=== PATIENT | female | born 1980 | race African-American/Black ===

== ENCOUNTER 2018-07-26 06:01 | Emergency (ER) | payer BC, MEDICAID ==
[~2018-07-26] VITALS: Ht 162.6 cm; Wt 131.5 kg
[2018-07-26 07:05] LABS: Basophils # (auto) 0 uL; Eosinophils # (auto) 0 uL; Mean Corpuscular Hemoglobin 25.6 pg (28.0-32.0); Mean Corpuscular Hgb Conc. 32.5 g/dL (32.0-36.0); Monocytes # (auto) 0.3 uL; Nucleated Red Blood Cells % 0.1 %
[2018-07-26 07:07] LABS: Hematocrit 39.9 % (36.0-46.0); Lymphocytes # (auto) 1.4 uL; Lymphocytes % (auto) 32.7 % (10.0-50.0); Mean Corpuscular Volume 78.8 fL (80.0-100.0); Monocytes % (auto) 7.1 % (0.0-12.0); Neutrophils # (auto) 2.4 uL; Neutrophils % (auto) 58.2 % (37.0-80.0); Platelet Count (auto) 348 10^3/uL (140-450); Red Blood Cells 5.07 10^6/uL (4.0-5.20); Red Cell Distribution Width 18.9 % (11.8-14.3); White Blood Cell 4.2 10^3/uL (4.4-10.8)
[2018-07-26 07:23] LABS: Albumin 3.1 g/dL (3.4-5.0); BUN/Creatinine Ratio 16.7; Calcium 8.5 mg/dL (8.5-10.1); Potassium 3.7 mmol/L (3.5-5.1)
[2018-07-26 07:26] LABS: Bilirubin, Total 0.4 mg/dL (0.2-1.0)
[2018-07-26 10:23] VITALS: BP 121/77
[2018-07-26 10:50] LABS: Urine Bacteria NONE SEEN /hpf (None Seen); Urine Blood Negative /uL (Negative); Urine Specific Gravity 1.009 (1.001-1.035); Urine WBC <1 /hpf (0 - 5)
== END 2018-07-26 11:24 | disposition home or self-care (01) ==
LOC: ER 06:01
DX: O36.4XX0 Maternal care for intrauterine death, not applicable or unspecified (principal); Z3A.01 Less than 8 weeks gestation of pregnancy; Z90.49 Acquired absence of other specified parts of digestive tract; Z88.6 Allergy status to analgesic agent
CPT/HCPCS: 36415; 76801; 80053; 81001; 84702; 85025

== ENCOUNTER 2019-12-14 14:19 | Emergency (ER) | payer BC, MEDICAID ==
[~2019-12-14] VITALS: Ht 162.6 cm; Wt 142.9 kg
[2019-12-14 14:49] VITALS: BP 136/86
[2019-12-14 15:13] LABS: Urine WBC None Seen /hpf (0 - 5)
[2019-12-14 15:31] LABS: Urine Bacteria NONE SEEN /hpf (None Seen); Urine Blood Negative /uL (Negative); Urine Mucus FEW (None Seen); Urine Specific Gravity 1.026 (1.001-1.035)
== END 2019-12-14 16:23 | disposition home or self-care (01) ==
LOC: ER 14:19
DX: B34.9 Viral infection, unspecified (principal); R10.9 Unspecified abdominal pain; Z88.6 Allergy status to analgesic agent; Z90.49 Acquired absence of other specified parts of digestive tract
CPT/HCPCS: 36415; 71045; 81001; 81025; 87426

== ENCOUNTER 2021-05-10 16:42 | Inpatient (IN) | payer BC, MEDICAID ==
[~2021-05-10] VITALS: Ht 162.6 cm; Wt 164.3 kg
[2021-05-10] MEDS ORDERED: LIDOCAINE VISCOUS 2% 15ML UD PO ONE (17:15)
[2021-05-10] MEDS ORDERED: ONDANSETRON HCL 4 MG/2 ML VIAL IV ONE (17:15)
[2021-05-10] MEDS ORDERED: ALUM & MAG HYDROX-SIMETH LIQ(MAALOX) 30 ML PO ONE (17:15)
[2021-05-10] MEDS ORDERED: FAMOTIDINE (10MG/ML) 2ML VL IV ONE (17:15)
[2021-05-10] MEDS ORDERED: METOCLOPRAMIDE HCL 5MG/ml INJ 2ml VIAL IV ONE (17:30)
[2021-05-10 17:40] LABS: Urine Bacteria FEW /hpf (None Seen); Urine Blood 3+ /uL (Negative); Urine Mucus FEW (None Seen); Urine Specific Gravity 1.033 (1.001-1.035); Urine WBC 16 /hpf (0 - 5)
[2021-05-10 18:46] LABS: Albumin 3.5 g/dL (3.4-5.0); BUN/Creatinine Ratio 9.8; Calcium 8.4 mg/dL (8.5-10.1); Potassium 3.2 mmol/L (3.5-5.1)
[2021-05-10 18:49] LABS: Bilirubin, Total 0.4 mg/dL (0.2-1.0); Total Protein 7.3 g/dL (6.4-8.2)
[2021-05-10 19:15] LABS: Basophils # (auto) 0 10 ^3/uL (0-0.2); Basophils % (auto) 0.3 % (0.0-2.0); Eosinophils # (auto) 0 10 ^3/uL (0-0.8); Eosinophils % (auto) 0.6 % (0.0-7.0); Hematocrit 39.2 % (36.0-46.0); Hemoglobin 13.1 g/dL (12.2-16.2); Lymphocytes # (auto) 2.4 10 ^3/uL (0.4-5.4); Lymphocytes % (auto) 40.8 % (10.0-50.0); Mean Corpuscular Hemoglobin 26.8 pg (28.0-32.0); Mean Corpuscular Hgb Conc. 33.4 g/dL (32.0-36.0); Mean Corpuscular Volume 80.4 fL (80.0-100.0); Monocytes # (auto) 0.6 10 ^3/uL (0-1.3); Monocytes % (auto) 10.8 % (0.0-12.0); Neutrophils # (auto) 2.7 10 ^3/uL (1.6-8.6); Neutrophils % (auto) 47.5 % (37.0-80.0); Nucleated Red Blood Cells % 0.2 %; Red Blood Cells 4.87 10^6/uL (4.0-5.20); Red Cell Distribution Width 16.3 % (11.8-14.3); White Blood Cell 5.8 10^3/uL (4.4-10.8)
[2021-05-10] MEDS ORDERED: NITROGLYCERIN 0.4 MG SL TAB SL PRN (23:00)
[2021-05-10] MEDS ORDERED: LACTATED RINGER'S 1,000 ML IV SCH (23:00)
[2021-05-10] MEDS ORDERED: MORPHINE SULFATE INJECTION 2 MG/ML SYRG IV PRN (23:00)
[2021-05-11 00:18] LABS: INR 1.04 (0.9-1.15); Partial Thromboplastin Time 26.6 sec (23.6-33.0)
[2021-05-11] MEDS ORDERED: MORPHINE SULFATE 4 MG/ML SYR/VIAL IV ONE (01:15)
[2021-05-11] MEDS ORDERED: ONDANSETRON HCL 4 MG/2 ML VIAL IV ONE ×2 (01:15→12:58)
[2021-05-11] MEDS ORDERED: ceFAZolin 1GM/50ML 100 ML IV ONE (06:39)
[2021-05-11] MEDS ORDERED: RHO (D) IMMUNE GLOBULIN 300 MCG INJ IM PRN (06:45)
[2021-05-11] MEDS ORDERED: ONDANSETRON HCL 4 MG/2 ML VIAL IV PRN ×2 (06:45→07:15)
[2021-05-11] MEDS ORDERED: SUCCINYLCHOLINE CHLORIDE 20 MG/ML 10ML VIAL IV ONE (06:46)
[2021-05-11] MEDS ORDERED: fentaNYL CITRATE 100 MCG/2 ML VL ONE (06:47)
[2021-05-11] MEDS ORDERED: MEPERIDINE HCL (50 MG/ML) 1 ML VIAL ONE (06:48)
[2021-05-11] MEDS ORDERED: MIDAZOLAM HCL 2MG/2ML 2ml VIAL (1mg/ml) ONE (06:48)
[2021-05-11] MEDS ORDERED: MIDAZOLAM HCL 2MG/2ML 2ml VIAL (1mg/ml) IV PRN (07:15)
[2021-05-11] MEDS ORDERED: MORPHINE SULFATE 4 MG/ML SYR/VIAL IV PRN (07:15)
[2021-05-11] MEDS ORDERED: KETOROLAC TROMETH 30 MG/ML 1ML VIAL IV ONE (07:15)
[2021-05-11] MEDS ORDERED: ePHEDrine SULFATE 50 MG/ML AMP IV PRN (07:15)
[2021-05-11] MEDS ORDERED: LABETALOL HCL 5 MG/ML 4ML SYRINGE IV PRN (07:15)
[2021-05-11] MEDS ORDERED: PROPOFOL 10 MG/ML 20 ML IV ONE (07:57)
[2021-05-11] MEDS ORDERED: DexAMETHasone SOD PHOS 10MG/1ML VIAL INJ ONE (07:57)
[2021-05-11] MEDS: HYDROmorphone HCL 2 MG/ML VL IV PRN ×5 (08:46→21:56)
[2021-05-11] MEDS ORDERED: PREN29TA (11:33)
[2021-05-11] MEDS ORDERED: LEVO125T7 PO (11:33)
[2021-05-11] MEDS ORDERED: LEVO25TA6 PO (11:33)
[2021-05-11] MEDS ORDERED: NEOSTIGMINE 1 MG/ML INJ (10mg/10ML VIAL) IV ONE (12:58)
[2021-05-11] MEDS ORDERED: SUGAMMADEX 200mg/2ml Vial (100MG/ML) IV ONE (12:58)
[2021-05-11] MEDS ORDERED: GLYCOPYRROLATE 0.2 MG/ML 1ML VIAL IV ONE (12:58)
[2021-05-11 13:00] VITALS: BP 104/56
[2021-05-11] MEDS: ceFAZolin 1GM/50ML 50 ML IV SCH ×2 (14:08→21:55)
[2021-05-11] MEDS ORDERED: HYDR-4902 PO (14:53)
[2021-05-11] MEDS ORDERED: ONDA-144 PO (14:53)
[2021-05-11] MEDS ORDERED: DOCU-94 PO (14:53)
[2021-05-11 17:00] VITALS: BP 103/63
[2021-05-11] MEDS: LACTATED RINGER'S 1,000 ML IV SCH (20:05)
[2021-05-11 20:41] LABS: Basophils # (auto) 0.1 10 ^3/uL (0-0.2); Basophils % (auto) 0.8 % (0.0-2.0); Eosinophils # (auto) 0 10 ^3/uL (0-0.8); Hematocrit 36.6 % (36.0-46.0); Hemoglobin 12.3 g/dL (12.2-16.2); Lymphocytes # (auto) 0.7 10 ^3/uL (0.4-5.4); Lymphocytes % (auto) 6.5 % (10.0-50.0); Mean Corpuscular Hemoglobin 27.2 pg (28.0-32.0); Mean Corpuscular Hgb Conc. 33.7 g/dL (32.0-36.0); Mean Corpuscular Volume 80.5 fL (80.0-100.0); Monocytes # (auto) 0.4 10 ^3/uL (0-1.3); Monocytes % (auto) 3.9 % (0.0-12.0); Neutrophils # (auto) 8.8 10 ^3/uL (1.6-8.6); Neutrophils % (auto) 88.8 % (37.0-80.0); Nucleated Red Blood Cells % 0.1 %; Red Blood Cells 4.55 10^6/uL (4.0-5.20); Red Cell Distribution Width 16.6 % (11.8-14.3)
[2021-05-11 22:00] VITALS: BP 115/65
[2021-05-12] MEDS: LACTATED RINGER'S 1,000 ML IV SCH (02:45)
[2021-05-12 05:00] VITALS: BP 97/48
[2021-05-12 05:55] LABS: Basophils # (auto) 0 10 ^3/uL (0-0.2); Basophils % (auto) 0.1 % (0.0-2.0); Eosinophils # (auto) 0 10 ^3/uL (0-0.8); Hematocrit 34.5 % (36.0-46.0); Hemoglobin 11.6 g/dL (12.2-16.2); Lymphocytes % (auto) 9.5 % (10.0-50.0); Mean Corpuscular Hemoglobin 27.2 pg (28.0-32.0); Mean Corpuscular Hgb Conc. 33.8 g/dL (32.0-36.0); Mean Corpuscular Volume 80.6 fL (80.0-100.0); Monocytes # (auto) 0.9 10 ^3/uL (0-1.3); Monocytes % (auto) 8.7 % (0.0-12.0); Neutrophils # (auto) 8.8 10 ^3/uL (1.6-8.6); Neutrophils % (auto) 81.7 % (37.0-80.0); Red Blood Cells 4.28 10^6/uL (4.0-5.20); Red Cell Distribution Width 16.4 % (11.8-14.3); White Blood Cell 10.8 10^3/uL (4.4-10.8)
[2021-05-12] MEDS: ceFAZolin 1GM/50ML 50 ML IV SCH ×3 (06:40→21:17)
[2021-05-12] MEDS ORDERED: DOCUSATE SOD 100 MG CAP PO PRN (07:30)
[2021-05-12] MEDS: D5W/SOD CHL 0.45% 1,000 ML IV SCH ×2 (08:40→20:15)
[2021-05-12] MEDS: HYDROcodone-ACET 5/325MG TAB PO PRN ×3 (08:41→21:25)
[2021-05-12] MEDS: DOCUSATE CALCIUM 240 MG CAP PO SCH (08:54)
[2021-05-12 09:00] VITALS: BP 95/57
[2021-05-12] MEDS: SIMETHICONE 80 MG CHEWABLE TABLET PO SCH ×3 (12:49→21:17)
[2021-05-12 13:00] VITALS: BP 110/45
[2021-05-12] MEDS: BISACODYL 10 MG RECT SUPP PR PRN (15:53)
[2021-05-12 22:00] VITALS: BP 102/41
[2021-05-13 05:00] VITALS: BP 119/74
[2021-05-13] MEDS: SIMETHICONE 80 MG CHEWABLE TABLET PO SCH (06:00)
[2021-05-13] MEDS: ceFAZolin 1GM/50ML 50 ML IV SCH (06:21)
[2021-05-13] MEDS: HYDROcodone-ACET 5/325MG TAB PO PRN (08:25)
[2021-05-13] MEDS: D5W/SOD CHL 0.45% 1,000 ML IV SCH (08:29)
[2021-05-13 09:00] VITALS: BP 128/84
[2021-05-13] MEDS: DOCUSATE CALCIUM 240 MG CAP PO SCH (10:00)
[2021-05-13] MEDS: BISACODYL 10 MG RECT SUPP PR PRN (10:25)
[2021-05-13 13:00] VITALS: BP 137/87
[2021-05-13 13:42] VITALS: BP 137/87
== END 2021-05-13 14:05 | disposition home or self-care (01) | DRG 819 ==
LOC: ER 16:42 → OVERFLOW 22:54 → CENTRAL 05-11 10:37
PROVIDERS: ADMIT Obstetrics & Gynecology; ATTEND Obstetrics & Gynecology
PROC: 10T20ZZ Resection of Products of Conception, Ectopic, Open Approach (ICD-10-PCS; 2021-05-11)
PROC: 0D9W0ZZ Drainage of Peritoneum, Open Approach (ICD-10-PCS; 2021-05-11)
PROC: 0UB60ZZ Excision of Left Fallopian Tube, Open Approach (ICD-10-PCS; principal; 2021-05-11 06:43)
DX: O00.80 Other ectopic pregnancy without intrauterine pregnancy (principal); Z20.822 Contact with and (suspected) exposure to COVID-19; Z80.9 Family history of malignant neoplasm, unspecified; Z82.49 Family history of ischemic heart disease and other diseases of the circulatory system; Z90.49 Acquired absence of other specified parts of digestive tract
CPT/HCPCS: 36415; 76801; 76817; 80053; 81001; 81025; 84702; 85025; 85610; 85730; 86850; 86900; 86901; 96361; 96374; 96375; G0378; J0330; J0690; J1100; J2250; J2405; J2704; J3490

== ENCOUNTER 2022-01-31 16:05 | Emergency (ER) | payer BC, MEDICAID ==
[~2022-01-31] VITALS: Ht 167.6 cm; Wt 115.0 kg
[~2022-01-31 16:05] MED LIST: DOCU-94 PO; HYDR-4902 PO; LEVO125T7 PO; LEVO25TA6 PO; ONDA-144 PO; PREN29TA
[2022-01-31] MEDS ORDERED: KETOROLAC TROMETH 60MG/2ML VIAL IM ONE (16:30)
[2022-01-31 16:35] VITALS: BP 140/84
[2022-01-31] MEDS ORDERED: ACETAMINOPHEN 500 MG TAB PO ONE ×2 (17:06→17:15)
[2022-01-31] MEDS ORDERED: HYDR-4902 PO (17:40)
== END 2022-01-31 17:42 | disposition home or self-care (01) ==
LOC: ER 16:05 → EEVIPCON 16:05 → ER 17:42
DX: S42.142A Displaced fracture of glenoid cavity of scapula, left shoulder, initial encounter for closed fracture (principal); T14.8XXA Other injury of unspecified body region, initial encounter; Z90.49 Acquired absence of other specified parts of digestive tract; Z79.899 Other long term (current) drug therapy; Z88.2 Allergy status to sulfonamides; Z88.8 Allergy status to other drugs, medicaments and biological substances; W01.0XXA Fall on same level from slipping, tripping and stumbling without subsequent striking against object, initial encounter; Y93.89 Activity, other specified; Y92.89 Other specified places as the place of occurrence of the external cause; Y99.8 Other external cause status
CPT/HCPCS: 73060; 73200; 73700; 99284; J1885

== ENCOUNTER 2022-11-22 10:57 | Emergency (ER) | payer BC, MEDICAID ==
[~2022-11-22] VITALS: Ht 162.6 cm; Wt 154.9 kg
[2022-11-22 11:28] VITALS: BP 13/93; PULSE 101; TEMP 98.3; O2SAT 97
[2022-11-22 12:07] LABS: Basophils # (auto) 0 10 ^3/uL (0-0.2); Hematocrit 39.3 % (36.0-46.0); Hemoglobin 12.7 g/dL (12.2-16.2); Lymphocytes # (auto) 2.1 10 ^3/uL (0.4-5.4); Lymphocytes % (auto) 43.8 % (10.0-50.0); Monocytes # (auto) 0.4 10 ^3/uL (0-1.3); Neutrophils # (auto) 2.2 10 ^3/uL (1.6-8.6); Nucleated Red Blood Cells % 0.1 %
[2022-11-22 12:10] LABS: Basophils % (auto) 0.8 % (0.0-2.0); Eosinophils # (auto) 0.1 10 ^3/uL (0-0.8); Eosinophils % (auto) 1.3 % (0.0-7.0); Mean Corpuscular Hemoglobin 24.8 pg (28.0-32.0); Mean Corpuscular Hgb Conc. 32.3 g/dL (32.0-36.0); Mean Corpuscular Volume 76.5 fL (80.0-100.0); Monocytes % (auto) 8.6 % (0.0-12.0); Neutrophils % (auto) 45.5 % (37.0-80.0); Red Blood Cells 5.14 10^6/uL (4.0-5.20); Red Cell Distribution Width 17.2 % (11.8-14.3); White Blood Cell 4.9 10^3/uL (4.4-10.8)
[2022-11-22 12:19] LABS: Chloride 105 mmol/L (98-107); Potassium 3.6 mmol/L (3.5-5.1); Sodium 139 mmol/L (136-145)
[2022-11-22 12:20] LABS: Anion Gap 7 (5-15); Calcium 8.9 mg/dL (8.5-10.1); Carbon Dioxide 27 mmol/L (20-30)
[2022-11-22 12:23] LABS: INR 1.01 (0.9-1.15); Prothrombin Time 10.6 sec (9.3-11.8)
[2022-11-22 12:25] LABS: Blood Urea Nitrogen 7 mg/dL (9-23); Glucose 94 mg/dL (74-106)
[2022-11-22 12:28] LABS: Urine Bacteria FEW /hpf (None Seen); Urine Blood Negative /uL (Negative); Urine Clarity Clear (Clear); Urine Color Yellow (Yellow); Urine Mucus FEW (None Seen); Urine Protein, UAD TRACE (Negative); Urine Specific Gravity 1.033 (1.001-1.035); Urine Urobilinogen Normal (Negative); Urine WBC 1 /hpf (0 - 5); Urine pH 5.5 (5.0-8.0)
[2022-11-22] MEDS ORDERED: KETOROLAC TROMETH 60MG/2ML VIAL IM ONE (14:15)
== END 2022-11-22 14:26 | disposition home or self-care (01) ==
LOC: EEVIPCON 10:57 → ER 10:57
DX: M51.36 Other intervertebral disc degeneration, lumbar region (principal); Z88.6 Allergy status to analgesic agent; Z88.4 Allergy status to anesthetic agent; Z79.899 Other long term (current) drug therapy; Z90.49 Acquired absence of other specified parts of digestive tract
CPT/HCPCS: 36415; 72131; 80048; 81001; 83880; 85025; 85610; 93971; 96372; 99285; J1885